=== PATIENT | female | born 1990 | race Caucasian/White ===

== ENCOUNTER 2019-10-06 02:43 | Emergency (ER) | payer BC, OTHER ==
--- NOTE | 2019-10-06 03:18 | EDM.PDOC ---
ED HPI GENERAL MEDICAL PROBLEM - General Chief Complaint: Lower Extremity Injury/Pain Stated Complaint: POSS ANKLE INJURY Time Seen by Provider: 10/06/19 02:49 Source of Information: Reports: Patient History Limitations: Reports: No Limitations - History of Present Illness INITIAL COMMENTS - FREE TEXT/NARRATIVE: This is a 29-year-old female. 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 She denies any other trauma. When she got home she started ice it down it began to swell slightly so she comes back to the ER for a ration. Most of her pain is on the lateral malleolus area and slightly the base of the fifth metatarsal. There is some slight swelling there as well but she denies any medial malleolus tenderness. She denies any other lower extremity injury or pain. Did not hit her head and there was no loss of consciousness. Right Ankle Pain Score (Numeric/FACES): 4 - Related Data Allergies Allergy/AdvReac Type Severity Reaction Status Date / Time No Known Allergies Allergy Verified 10/06/19 02:51 Home Meds: Home Meds . [No Known Home Meds] 10/06/19 [History] Past Medical History - Past Health History Medical/Surgical History: Denies Medical/Surgical History Social & Family History - Tobacco Use Smoking Status *Q: Never Smoker Second Hand Smoke Exposure: No - Caffeine Use Caffeine Use: Reports: Coffee - Recreational Drug Use Recreational Drug Use: No Review of Systems - Review of Systems Review Of Systems: See Below Constitutional: Reports: No Symptoms Eyes: Reports: No Symptoms Ears: Reports: No Symptoms Nose: Reports: No Symptoms Mouth/Throat: Reports: No Symptoms Respiratory: Reports: No Symptoms Cardiovascular: Reports: No Symptoms GI/Abdominal: Reports: No Symptoms Genitourinary: Reports: No Symptoms Musculoskeletal: Reports: Other (As per HPI) Skin: Reports: No Symptoms Neurological: Reports: No Symptoms Psychiatric: Reports: No Symptoms ED EXAM, GENERAL - Physical Exam Exam: See Below Exam Limited By: No Limitations General Appearance: Alert, WD/WN, No Apparent Distress Ears: Normal External Exam Nose: Normal Inspection Throat/Mouth: Normal Inspection, Normal Lips, Normal Voice, No Airway Compromise Head: Normocephalic Neck: Supple Respiratory/Chest: No Respiratory Distress Back Exam: Full Range of Motion Extremities: Normal Inspection, Other (right ankle has some mild swelling over the lateral malleolus, does have some plantarflexion and dorsiflexion but inversion of that ankle is very tender, she does not have tenderness along the medial malleolus noted, she has no tenderness of the fibula or tibia and denies any knee pain, neurovascular is grossly intact in that right lower extremity, she denies any other extremity injury) Neurological: Alert, Oriented Psychiatric: Normal Affect, Normal Mood Skin Exam: Warm, Dry ED TRAUMA EXTREMITY PROCEDURES - Splinting Right Lower Extremity Splint Site: Right ankle Pre-Procedure NV Status: Normal Post-Procedure NV Status: Normal Splint Material: Velcro Applied & Form Fitted By: Provider Provider Post-Splint Application NV Check: NV Status Normal Complications: No Course - Vital Signs Last Recorded V/S: Last Vital Signs Temp 97.8 F 10/06/19 02:50 Pulse 100 10/06/19 02:50 Resp 14 10/06/19 02:50 BP 136/85 10/06/19 02:50 Pulse Ox 100 10/06/19 02:50 - Orders/Labs/Meds Orders: Active Orders 24 hr Category Date Time Status Ankle Min 3V Rt [CR] Stat Exams 10/06/19 03:15 Taken DME for Discharge [COMM] Routine Oth 10/06/19 04:07 Ordered - Radiology Interpretation Free Text/Narrative:: X-ray of the right ankle does not show any acute fractures - Re-Assessments/Exams Free Text/Narrative Re-Assessment/Exam: 10/06/19 04:11 Spoke to the patient regarding the x-ray results. I placed her in a figure-of- eight Velcro splint for support of that right ankle. I encouraged her to keep it elevated and iced as much as possible and take ibuprofen or Aleve as needed for the soreness. She is to follow-up with her family doctor later this week for recheck or return to the ER if her symptoms worsen Departure - Departure Time of Disposition: 04:12 Disposition: Home, Self-Care 01 Condition: Good Clinical Impression: Right ankle sprain Qualifiers: Encounter type: initial encounter Involved ligament of ankle: tibiofibular ligament Qualified Code(s): S93.431A - Sprain of tibiofibular ligament of right ankle, initial encounter - Discharge Information *PRESCRIPTION DRUG MONITORING PROGRAM REVIEWED*: Not Applicable *COPY OF PRESCRIPTION DRUG MONITORING REPORT IN PATIENT [place]: Not Applicable Instructions: Ankle Sprain, [id number] Referrals: PCP,None [Primary Care Provider] - Forms: ED Department Discharge Additional Instructions: Wear the ankle splint at work just for support, you may take the splint off at home but just be careful, use ibuprofen or Aleve as needed for the soreness, try to ice it down as much as possible over the next 24 hours and then after 48 hours you may start using heat to the ankle, follow-up with your family doctor later this week if needed or return to the ER if there is any problems Sepsis Event Note - Evaluation Sepsis Screening Result: No Definite Risk - Focused Exam Vital Signs: Vital Signs Temp Pulse Resp BP Pulse Ox 10/06/19 02:50 97.8 F 100 14 136/85 100 Date Exam was Performed: 10/06/19 Time Exam was Performed: 04:11 - My Orders Last 24 Hours: My Active Orders 10/06/19 03:15 Ankle Min 3V Rt [CR] Stat 10/06/19 04:07 DME for Discharge [COMM] Routine - Assessment/Plan Last 24 Hours: My Active Orders 10/06/19 03:15 Ankle Min 3V Rt [CR] Stat 10/06/19 04:07 DME for Discharge [COMM] Routine
--- NOTE | 2019-10-06 09:25 | CR ---
Right ankle: 4 views of the right ankle were obtained. Comparison: No prior ankle exam. Ankle mortise is symmetric. No fracture, dislocation or other bony abnormality is identified. Impression: 1. No abnormality is identified on right ankle exam. Diagnostic code #1 This report was dictated in [place] Standard Time
== END 2019-10-06 04:17 | disposition home or self-care (01) ==
LOC: JD.ED 02:43
DX: S93.431A Sprain of tibiofibular ligament of right ankle, initial encounter (principal); W00.0XXA Fall on same level due to ice and snow, initial encounter
CPT/HCPCS: 73610-26-RT; 73610-RT; 99282; 99284-25